=== PATIENT | male | born 1945 | race Caucasian/White ===

== ENCOUNTER → 2018-05-31 | Outpatient (CLI) | payer OTHER ==
--- NOTE | 2018-05-31 14:33 | EST ---
EXERCISE STRESS AGE: 73 SEX: M HT: 73 WT: 181 PROTOCOL: Zach Stress test STAGE: II DURATION OF EXERCISE: 7:00 HEART RATE REST: 68 BLOOD PRESSURE REST: 147/83 MAXIMUM HEART RATE ACHIEVED: 135 MAXIMUM BLOOD PRESSURE: 209/77 85% MPHR: 125 100% MPHR: 147 METS: 8.5 INDICATIONS: Cardiac disease CLINICAL INFORMATION: Baseline rhythm is sinus mechanism rate 68, normal axis, occasional PACs. Baseline blood pressure 147/83 mmHg. Patient exercised on Zach protocol for 7 minutes reaching peak rate 135 beats per minute which is equal to 91% maximum predicted heart rate. Peak blood pressure 209/77 mmHg. Test was terminated due to fatigue. There was no chest pain. Electrocardiograph monitoring revealed occasional PACs and PVCs. There was no evidence of diagnostic ischemic ST deviation. CONCLUSION: 1. Good exercise tolerance with occasional PACs and PVCs. 2. Normal electrocardiograph response to exercise with no evidence of exercise-induced ischemia. MMODL / IJN: [id number] /
== END | disposition home or self-care (01) ==
LOC: RADNMMAIN 08:34
DX: I49.3 Ventricular premature depolarization (principal); I25.10 Atherosclerotic heart disease of native coronary artery without angina pectoris
CPT/HCPCS: 93017